=== PATIENT | female | born 1960 | race Caucasian/White ===

== ENCOUNTER → 2018-05-18 | Emergency (ER) | payer MEDICAID, MEDICARE ==
[~2018-05-18] VITALS: Ht 160 cm; Wt 102.6 kg
[2018-05-18 19:49] LABS: BASOPHILS # (AUTO) 0.1 X10'3 (0-0.2); EOSINOPHILS # (AUTO) 0.1 X10'3 (0-0.9); EOSINOPHILS % (AUTO) 1.1 % (0-6); HEMATOCRIT 42.5 % (35.0-45.0); HEMOGLOBIN 14.3 g/dl (12.0-16.0); LYMPHOCYTES # (AUTO) 1.3 X10'3 (1.1-4.8); LYMPHOCYTES % (AUTO) 14.3 % (21-51); MEAN CORPUSCULAR HEMOGLOBIN 29.9 PG (27.0-31.0); MEAN CORPUSCULAR HGB CONC 33.7 g/dL (33.0-36.5); MEAN CORPUSCULAR VOLUME 88.9 FL (78-98); MEAN PLATELET VOLUME 9.1 FL (7.4-10.4); MONOCYTES # (AUTO) 0.6 X10'3 (0-0.9); MONOCYTES % (AUTO) 6.2 % (2-12); NEUTROPHILS % (AUTO) 77.4 % (42-75); PLATELET COUNT 305 X10'3 (140-440); RED BLOOD COUNT 4.78 X10'6 (4.20-5.60); RED CELL DISTRIBUTION WIDTH 14.2 % (11.5-14.5)
[2018-05-18 20:12] LABS: ALANINE AMINOTRANSFERASE 21 U/L (12-78); ALBUMIN 3.6 G/DL (3.4-5.0); ALKALINE PHOSPHATASE 81 IU/L (46-116); ANION GAP 9 (8-16); ASPARTATE AMINO TRANSFERASE 13 U/L (10-37); BILIRUBIN,TOTAL 0.2 MG/DL (0.1-1.0); BLOOD UREA NITROGEN 22 MG/DL (7-18); BUN/CREATININE RATIO 20.2 (6.6-38.0); CALCIUM 9.2 MG/DL (8.5-10.1); CHLORIDE 106 MMOL/L (99-107); CREATININE 1.09 MG/DL (0.40-0.90); GLUCOSE 123 MG/DL (70-104); POTASSIUM 4.5 MMOL/L (3.5-5.1); SODIUM 142 MMOL/L (135-145); TOTAL CARBON DIOXIDE 26.8 MMOL/L (24-32); TOTAL PROTEIN 7.3 G/DL (6.4-8.2); eGFR 52 ML/MIN
[2018-05-18 20:18] LABS: PARTIAL THROMBOPLASTIN TIME 26 SECONDS (22-32); PROTHROMBIN TIME 10.1 SECONDS (9.0-12.0)
[2018-05-18 20:24] VITALS: BP 163/63
[2018-05-18 21:30] LABS: CLARITY,URINE CLEAR (Clear); COLOR,URINE YELLOW (Yellow); GLUCOSE, URINE NEGATIVE (Neg); KETONES,URINE 15 mg/dl (Neg); LEUKOCYTE ESTERASE ,URINE NEGATIVE (Neg); NITRITES, URINE NEGATIVE (Neg); OCCULT BLOOD,URINE NEGATIVE (Neg); PROTEIN,URINE NEGATIVE (Neg); UROBILINOGEN,URINE 0.2 E.U/dL (0.2-1.0)
[2018-05-18 21:41] LABS: UA COLLECTION TYPE CLN CATCH MIDSTREAM
== END | disposition home or self-care (01) ==
LOC: ER 19:11
DX: R55 Syncope and collapse (principal); R05 Cough; Z88.5 Allergy status to narcotic agent
CPT/HCPCS: 36415; 71045; 80053; 81003; 83880; 84484; 85025; 85610; 85730; 93005; 99284

== ENCOUNTER 2019-07-27 13:44 | Emergency (ER) | payer MEDICARE, MEDICAID ==
[~2019-07-27] VITALS: Ht 160 cm; Wt 103.7 kg
[2019-07-27 15:05] VITALS: BP 163/108
[2019-07-27] MEDS ORDERED: dexamethasone sod phosphate 10mg/ml inj IV STA (15:46)
[2019-07-27] MEDS ORDERED: ondansetron/PF 4mg/2ml inj IV ONE (15:50)
[2019-07-27] MEDS ORDERED: normal saline 1000ML IV soln IVB ONE (15:50)
[2019-07-27] MEDS ORDERED: ketorolac tromethamine 15mg/ml inj. IV ONE (15:50)
== END 2019-07-27 17:17 | disposition home or self-care (01) ==
LOC: ER 13:44
DX: R51 Headache (principal); E03.9 Hypothyroidism, unspecified; G89.29 Other chronic pain; F32.9 Major depressive disorder, single episode, unspecified; Z98.890 Other specified postprocedural states; Z88.5 Allergy status to narcotic agent
CPT/HCPCS: 96374; 96375; 99284; J1100; J1885; J2405; J7030

== ENCOUNTER 2019-09-25 13:14 | Emergency (ER) | payer MEDICARE, MEDICAID ==
[~2019-09-25] VITALS: Ht 160 cm; Wt 105.0 kg
[2019-09-25 13:45] LABS: BASOPHILS # (AUTO) 0.1 X10'3 (0-0.2); EOSINOPHILS # (AUTO) 0.2 X10'3 (0-0.9); HEMATOCRIT 40.7 % (35.0-45.0); HEMOGLOBIN 13.9 g/dl (12.0-16.0); LYMPHOCYTES # (AUTO) 1.4 X10'3 (1.1-4.8); LYMPHOCYTES % (AUTO) 23.9 % (21-51); MEAN CORPUSCULAR HEMOGLOBIN 31.5 PG (27.0-31.0); MEAN CORPUSCULAR HGB CONC 34.1 g/dL (33.0-36.5); MEAN CORPUSCULAR VOLUME 92.4 FL (78-98); MEAN PLATELET VOLUME 8.4 FL (7.4-10.4); MONOCYTES # (AUTO) 0.4 X10'3 (0-0.9); MONOCYTES % (AUTO) 7.2 % (2-12); NEUTROPHILS # (AUTO) 3.8 X10'3 (1.8-7.7); NEUTROPHILS % (AUTO) 63.9 % (42-75); PLATELET COUNT 281 X10'3 (140-440); RED BLOOD COUNT 4.41 X10'6 (4.20-5.60); RED CELL DISTRIBUTION WIDTH 13.1 % (11.5-14.5)
[2019-09-25 13:59] LABS: ALANINE AMINOTRANSFERASE 33 U/L (12-78); ALBUMIN 3.9 G/DL (3.4-5.0); ALBUMIN/GLOBULIN RATIO 0.9 (1.1-1.5); ALKALINE PHOSPHATASE 108 IU/L (46-116); ANION GAP 8 (8-16); ASPARTATE AMINO TRANSFERASE 16 U/L (10-37); BILIRUBIN,TOTAL 0.5 MG/DL (0.1-1.0); BLOOD UREA NITROGEN 16 MG/DL (7-18); CALCIUM 9.2 MG/DL (8.5-10.1); CHLORIDE 105 MMOL/L (99-107); CREATININE 1.23 MG/DL (0.40-0.90); GLUCOSE 104 MG/DL (70-104); POTASSIUM 4.1 MMOL/L (3.5-5.1); SODIUM 140 MMOL/L (135-145); TOTAL CARBON DIOXIDE 26.6 MMOL/L (24-32); TOTAL PROTEIN 8.2 G/DL (6.4-8.2); eGFR 45 ML/MIN
[2019-09-25 14:05] LABS: MAGNESIUM 2.1 MG/DL (1.5-2.4)
[2019-09-25 15:27] VITALS: BP 133/77
== END 2019-09-25 15:21 | disposition home or self-care (01) ==
LOC: ER 13:15
DX: R07.89 Other chest pain (principal); I10 Essential (primary) hypertension; E03.9 Hypothyroidism, unspecified; G89.29 Other chronic pain; F32.9 Major depressive disorder, single episode, unspecified; Z98.890 Other specified postprocedural states; Z88.5 Allergy status to narcotic agent
CPT/HCPCS: 36415; 71045; 80053; 83735; 83880; 84484; 85025; 93005; 99283; 99285

== ENCOUNTER 2019-12-24 10:24 | Outpatient (CLI) | payer MEDICARE, MEDICAID ==
[~2019-12-24] VITALS: Ht 160 cm; Wt 113.4 kg
[2019-12-24] MEDS ORDERED: albuterol 2.5 MG/3 ML nebule NEB ONE (11:05)
== END 2019-12-24 23:59 | disposition home or self-care (01) ==
LOC: RT 10:24
PROVIDERS: ATTEND Student in an Organized Health Care Education/Training Program
DX: R05 Cough (principal)
CPT/HCPCS: 94010

== ENCOUNTER 2020-01-31 12:10 | Emergency (ER) | payer MEDICARE, MEDICAID ==
[~2020-01-31] VITALS: Ht 160 cm; Wt 97.7 kg
[2020-01-31 12:59] LABS: BASOPHILS # (AUTO) 0.1 X10'3 (0-0.2); BASOPHILS % (AUTO) 0.7 % (0-1); EOSINOPHILS # (AUTO) 0.2 X10'3 (0-0.9); EOSINOPHILS % (AUTO) 1.5 % (0-6); HEMATOCRIT 42.7 % (35.0-45.0); HEMOGLOBIN 14.5 g/dl (12.0-16.0); LYMPHOCYTES # (AUTO) 1.7 X10'3 (1.1-4.8); MEAN CORPUSCULAR HEMOGLOBIN 31.4 PG (27.0-31.0); MEAN CORPUSCULAR VOLUME 92.4 FL (78-98); MEAN PLATELET VOLUME 8.6 FL (7.4-10.4); MONOCYTES # (AUTO) 1.1 X10'3 (0-0.9); MONOCYTES % (AUTO) 7.4 % (2-12); NEUTROPHILS % (AUTO) 79.4 % (42-75); PLATELET COUNT 423 X10'3 (140-440); RED BLOOD COUNT 4.63 X10'6 (4.20-5.60); RED CELL DISTRIBUTION WIDTH 12.7 % (11.5-14.5); WHITE BLOOD COUNT 15.1 X10'3 (4.5-11.0)
[2020-01-31 13:12] LABS: ALANINE AMINOTRANSFERASE 21 U/L (12-78); ALBUMIN/GLOBULIN RATIO 0.7 (1.1-1.5); ALKALINE PHOSPHATASE 109 IU/L (46-116); AMYLASE 38 U/L (25-115); ANION GAP 14 (8-16); ASPARTATE AMINO TRANSFERASE 12 U/L (10-37); BILIRUBIN,TOTAL 0.7 MG/DL (0.1-1.0); BLOOD UREA NITROGEN 12 MG/DL (7-18); BUN/CREATININE RATIO 9.2 (6.6-38.0); CALCIUM 10.1 MG/DL (8.5-10.1); CHLORIDE 102 MMOL/L (99-107); CREATININE 1.31 MG/DL (0.40-0.90); GLUCOSE 107 MG/DL (70-104); LIPASE 109 U/L (73-393); POTASSIUM 3.7 MMOL/L (3.5-5.1); SODIUM 139 MMOL/L (135-145); TOTAL CARBON DIOXIDE 23.2 MMOL/L (24-32); TOTAL PROTEIN 9.5 G/DL (6.4-8.2); eGFR 41 ML/MIN
[2020-01-31 13:16] LABS: CLARITY,URINE CLOUDY (Clear); COLOR,URINE YELLOW (Yellow); GLUCOSE, URINE NEGATIVE (Neg); KETONES,URINE >=80 mg/dl (Neg); LEUKOCYTE ESTERASE ,URINE TRACE (Neg); NITRITES, URINE NEGATIVE (Neg); OCCULT BLOOD,URINE TRACE-LYSED (Neg); PROTEIN,URINE 100 mg/dl (Neg)
[2020-01-31 13:23] LABS: UA COLLECTION TYPE CLN CATCH MIDSTREAM
[2020-01-31 13:26] LABS: BACTERIA,URINE 2+ /HPF (Neg); MUCUS STRANDS MODERATE /LPF (Neg); RBC,URINE 0-2 /HPF (0-2); RENAL CELLS, URINE FEW /HPF; SQUAMOUS EPITHELIAL CELL,UR MANY /LPF (FEW); TRANSITIONAL EPI CELLS,URINE FEW /HPF
[2020-01-31 13:27] LABS: AMORPHOUS URATES 1+
[2020-01-31] MEDS ORDERED: normal saline 1000ML IV soln IVB ONE (14:10)
[2020-01-31] MEDS ORDERED: AMOX-422 PO (14:50)
[2020-01-31 15:16] VITALS: BP 174/89
== END 2020-01-31 15:18 | disposition home or self-care (01) ==
LOC: ER 12:10
DX: K57.92 Diverticulitis of intestine, part unspecified, without perforation or abscess without bleeding (principal); I10 Essential (primary) hypertension; K21.9 Gastro-esophageal reflux disease without esophagitis; E03.9 Hypothyroidism, unspecified; G89.29 Other chronic pain; Z90.49 Acquired absence of other specified parts of digestive tract; Z88.8 Allergy status to other drugs, medicaments and biological substances; Z79.2 Long term (current) use of antibiotics
CPT/HCPCS: 36415; 74176; 80053; 81001; 82150; 83690; 85025; 96360; 99284; J7030

== ENCOUNTER 2021-08-15 11:27 | Emergency (ER) | payer MEDICARE, MEDICAID ==
[~2021-08-15] VITALS: Ht 162.6 cm; Wt 104.5 kg
[2021-08-15 13:01] VITALS: BP 186/88
[2021-08-15 13:52] LABS: CLARITY,URINE SLIGHTLY CLOUDY (Clear); COLOR,URINE YELLOW (Yellow); GLUCOSE, URINE NEGATIVE (Neg); KETONES,URINE NEGATIVE (Neg); LEUKOCYTE ESTERASE ,URINE NEGATIVE (Neg); NITRITES, URINE NEGATIVE (Neg); OCCULT BLOOD,URINE TRACE-INTACT (Neg); PH,URINE 5.5 (4.8-8.0); PROTEIN,URINE NEGATIVE (Neg); UROBILINOGEN,URINE 0.2 E.U/dL (0.2-1.0)
[2021-08-15 13:59] LABS: UA COLLECTION TYPE CLN CATCH MIDSTREAM
[2021-08-15 14:00] LABS: BACTERIA,URINE FEW /HPF (Neg); MUCUS STRANDS FEW /LPF (Neg); RBC,URINE 0-2 /HPF (0-2); SQUAMOUS EPITHELIAL CELL,UR FEW /LPF (FEW); WBC,URINE 20-30 /HPF (0-4)
[2021-08-15 14:01] LABS: WBC CLUMPS,URINE MANY /HPF (NEGATIVE)
[2021-08-15] MEDS ORDERED: PHEN-824 PO (14:27)
[2021-08-15] MEDS ORDERED: CEPH-585 PO (14:27)
== END 2021-08-15 14:30 | disposition home or self-care (01) ==
LOC: ER 11:27
DX: N39.0 Urinary tract infection, site not specified (principal); I10 Essential (primary) hypertension; K21.9 Gastro-esophageal reflux disease without esophagitis; E03.9 Hypothyroidism, unspecified; G89.29 Other chronic pain; Z90.49 Acquired absence of other specified parts of digestive tract; Z90.710 Acquired absence of both cervix and uterus; Z87.19 Personal history of other diseases of the digestive system; Z88.8 Allergy status to other drugs, medicaments and biological substances
CPT/HCPCS: 81001; 87088; 99283

== ENCOUNTER 2023-05-08 11:55 | Emergency (ER) | payer MEDICARE, MEDICAID ==
[~2023-05-08] VITALS: Ht 160 cm; Wt 99.0 kg
[~2023-05-08 11:55] MED LIST: PHEN-824 PO
[2023-05-08 12:26] VITALS: BP 125/77; PULSE 76; RESP 16; TEMP 98.8; O2SAT 100
[2023-05-08 13:19] LABS: BILIRUBIN,URINE NEGATIVE (Neg); CLARITY,URINE CLEAR (Clear); COLOR,URINE YELLOW (Yellow); GLUCOSE, URINE NEGATIVE (Neg); KETONES,URINE TRACE mg/dl (Neg); LEUKOCYTE ESTERASE ,URINE NEGATIVE (Neg); NITRITES, URINE NEGATIVE (Neg); OCCULT BLOOD,URINE NEGATIVE (Neg); PROTEIN,URINE NEGATIVE (Neg); URINE HCG NEGATIVE (NEG); UROBILINOGEN,URINE 0.2 E.U/dL (0.2-1.0)
[2023-05-08 13:27] LABS: UA COLLECTION TYPE CLN CATCH MIDSTREAM
[2023-05-08 13:31] LABS: BASOPHILS # (AUTO) 0.1 X10'3 (0-0.2); BASOPHILS % (AUTO) 0.7 % (0-1); EOSINOPHILS # (AUTO) 0.2 X10'3 (0-0.9); EOSINOPHILS % (AUTO) 2.3 % (0-6); HEMATOCRIT 40.9 % (35.0-45.0); HEMOGLOBIN 13.8 g/dl (12.0-16.0); LYMPHOCYTES # (AUTO) 1.2 X10'3 (1.1-4.8); LYMPHOCYTES % (AUTO) 15.4 % (21-51); MEAN CORPUSCULAR HEMOGLOBIN 31.2 PG (27.0-31.0); MEAN CORPUSCULAR HGB CONC 33.7 g/dL (33.0-36.5); MEAN CORPUSCULAR VOLUME 92.4 FL (78-98); MEAN PLATELET VOLUME 8.9 FL (7.4-10.4); MONOCYTES # (AUTO) 0.7 X10'3 (0-0.9); MONOCYTES % (AUTO) 9.3 % (2-12); NEUTROPHILS # (AUTO) 5.5 X10'3 (1.8-7.7); NEUTROPHILS % (AUTO) 72.3 % (42-75); PLATELET COUNT 287 X10'3 (140-440); RED BLOOD COUNT 4.43 X10'6 (4.20-5.60); RED CELL DISTRIBUTION WIDTH 13.1 % (11.5-14.5); WHITE BLOOD COUNT 7.6 X10'3 (4.5-11.0)
[2023-05-08 13:55] LABS: ALANINE AMINOTRANSFERASE 17 U/L (12-78); ALBUMIN 4.1 G/DL (3.4-5.0); ALBUMIN/GLOBULIN RATIO 0.9 (1.1-1.5); ALKALINE PHOSPHATASE 93 IU/L (46-116); ANION GAP 8 (8-16); ASPARTATE AMINO TRANSFERASE 16 U/L (10-37); BILIRUBIN,TOTAL 0.5 MG/DL (0.1-1.0); BLOOD UREA NITROGEN 17 MG/DL (7-18); BUN/CREATININE RATIO 14.3 (10.0-20.0); CHLORIDE 105 MMOL/L (99-107); CREATININE 1.19 MG/DL (0.40-0.90); GLUCOSE 107 MG/DL (70-104); LIPASE 48 U/L (16-77); POTASSIUM 4.1 MMOL/L (3.5-5.1); SODIUM 139 MMOL/L (135-145); TOTAL CARBON DIOXIDE 26.4 MMOL/L (24-32); TOTAL PROTEIN 8.7 G/DL (6.4-8.2); eCRCL 40 ML/MIN; eGFR 46 ML/MIN
[2023-05-08 15:48] LABS: APTT 33 SECONDS (22-32); PROTHROMBIN TIME 10.6 SECONDS (9.0-12.0)
[2023-05-08] MEDS ORDERED: DICY10CA88 PO (17:43)
[2023-05-08] MEDS ORDERED: AMOX-580 PO (17:43)
[2023-05-08] MEDS ORDERED: ketorolac trometh inj. 60 MG/2 ML VIAL IM ONE (17:50)
== END 2023-05-08 17:55 | disposition home or self-care (01) ==
LOC: ER 11:55
DX: K57.92 Diverticulitis of intestine, part unspecified, without perforation or abscess without bleeding (principal)
CPT/HCPCS: 36415; 74176; 80053; 81003; 81025; 83605; 83690; 84145; 85025; 85610; 85730; 87040; 99284

== ENCOUNTER 2023-05-13 11:16 | Emergency (ER) | payer MEDICARE, MEDICAID ==
[~2023-05-13] VITALS: Ht 160 cm; Wt 98.3 kg
[~2023-05-13 11:16] MED LIST changes: +AMOX-580 PO; +DICY10CA88 PO
[2023-05-13 12:24] LABS: BASOPHILS # (AUTO) 0.1 X10'3 (0-0.2); BASOPHILS % (AUTO) 1.1 % (0-1); EOSINOPHILS # (AUTO) 0.3 X10'3 (0-0.9); EOSINOPHILS % (AUTO) 3.3 % (0-6); HEMATOCRIT 41.3 % (35.0-45.0); HEMOGLOBIN 13.9 g/dl (12.0-16.0); LYMPHOCYTES # (AUTO) 1.3 X10'3 (1.1-4.8); LYMPHOCYTES % (AUTO) 15.4 % (21-51); MEAN CORPUSCULAR HEMOGLOBIN 30.8 PG (27.0-31.0); MEAN CORPUSCULAR HGB CONC 33.8 g/dL (33.0-36.5); MEAN CORPUSCULAR VOLUME 91.3 FL (78-98); MEAN PLATELET VOLUME 8.6 FL (7.4-10.4); MONOCYTES # (AUTO) 0.7 X10'3 (0-0.9); MONOCYTES % (AUTO) 8.7 % (2-12); NEUTROPHILS % (AUTO) 71.5 % (42-75); PLATELET COUNT 313 X10'3 (140-440); RED BLOOD COUNT 4.52 X10'6 (4.20-5.60); RED CELL DISTRIBUTION WIDTH 13.1 % (11.5-14.5); WHITE BLOOD COUNT 8.4 X10'3 (4.5-11.0)
[2023-05-13 12:34] LABS: URINE HCG NEGATIVE (NEG)
[2023-05-13 12:36] LABS: BILIRUBIN,URINE NEGATIVE (Neg); CLARITY,URINE CLEAR (Clear); COLOR,URINE YELLOW (Yellow); GLUCOSE, URINE NEGATIVE (Neg); KETONES,URINE NEGATIVE (Neg); LEUKOCYTE ESTERASE ,URINE NEGATIVE (Neg); NITRITES, URINE NEGATIVE (Neg); OCCULT BLOOD,URINE NEGATIVE (Neg); PH,URINE 5.5 (4.8-8.0); PROTEIN,URINE NEGATIVE (Neg); UROBILINOGEN,URINE 0.2 E.U/dL (0.2-1.0)
[2023-05-13 12:45] LABS: ALANINE AMINOTRANSFERASE 17 U/L (12-78); ALBUMIN 3.8 G/DL (3.4-5.0); ALBUMIN/GLOBULIN RATIO 0.8 (1.1-1.5); ALKALINE PHOSPHATASE 84 IU/L (46-116); ANION GAP 11 (8-16); ASPARTATE AMINO TRANSFERASE 13 U/L (10-37); BILIRUBIN,TOTAL 0.4 MG/DL (0.1-1.0); BLOOD UREA NITROGEN 17 MG/DL (7-18); BUN/CREATININE RATIO 14.8 (10.0-20.0); CALCIUM 9.4 MG/DL (8.5-10.1); CHLORIDE 104 MMOL/L (99-107); CREATININE 1.15 MG/DL (0.40-0.90); GLUCOSE 99 MG/DL (70-104); LIPASE 43 U/L (16-77); POTASSIUM 4.1 MMOL/L (3.5-5.1); SODIUM 142 MMOL/L (135-145); TOTAL CARBON DIOXIDE 27.1 MMOL/L (24-32); TOTAL PROTEIN 8.7 G/DL (6.4-8.2); eCRCL 41 ML/MIN; eGFR 48 ML/MIN
[2023-05-13 12:47] LABS: UA COLLECTION TYPE NON-SPECIFIED
[2023-05-13] MEDS: diphenhydrAMINE 50 mg/ml inj IV ONE (15:30)
[2023-05-13] MEDS: ondansetron/PF 4mg/2ml inj IV ONE (15:40)
[2023-05-13] MEDS: HYDROmorphone inj. 0.5 MG/0.5 ML DISP.SYRIN IV ONE (15:40)
[2023-05-13] MEDS ORDERED: iohexol 300mg/ml 100ml inj. ONE (15:53)
[2023-05-13 17:30] VITALS: PULSE 70
[2023-05-13] MEDS ORDERED: METR-159 PO (17:47)
[2023-05-13] MEDS ORDERED: CIPR750T14 PO (17:47)
[2023-05-13] MEDS ORDERED: TRAM50TA2 PO (17:49)
[2023-05-13 17:58] VITALS: BP 159/76; RESP 14; TEMP 98.6; O2SAT 98
== END 2023-05-13 18:00 | disposition home or self-care (01) ==
LOC: ER 11:17
DX: K57.92 Diverticulitis of intestine, part unspecified, without perforation or abscess without bleeding (principal); I10 Essential (primary) hypertension; K21.9 Gastro-esophageal reflux disease without esophagitis; E03.9 Hypothyroidism, unspecified; Z88.5 Allergy status to narcotic agent; Z79.2 Long term (current) use of antibiotics; Z79.899 Other long term (current) drug therapy; Z90.49 Acquired absence of other specified parts of digestive tract; Z90.710 Acquired absence of both cervix and uterus
CPT/HCPCS: 36415; 74177; 80053; 81003; 81025; 83690; 85025; 99285; J3490; Q9967

== ENCOUNTER 2024-01-30 13:25 | Emergency (ER) | payer MEDICARE, MEDICAID ==
[~2024-01-30] VITALS: Ht 160 cm; Wt 95.5 kg
[~2024-01-30 13:25] MED LIST changes: -AMOX-580 PO; +CIPR250T4 PO; +CLIN300C3 PO; -DICY10CA88 PO; +SULF1TAB45 PO
[2024-01-30 13:44] VITALS: BP 122/89; PULSE 68; RESP 18; TEMP 97.8; O2SAT 99
== END 2024-01-30 16:39 | disposition left against medical advice (07) ==
LOC: ER 13:26
DX: L02.511 Cutaneous abscess of right hand (principal); Z53.21 Procedure and treatment not carried out due to patient leaving prior to being seen by health care provider; Z88.5 Allergy status to narcotic agent

== ENCOUNTER 2024-07-07 10:05 | Emergency (ER) | payer MEDICARE, MEDICAID ==
[~2024-07-07] VITALS: Ht 160 cm; Wt 101.7 kg
[~2024-07-07 10:05] MED LIST changes: -CLIN300C3 PO; -SULF1TAB45 PO
--- NOTE | 2024-07-07 10:58 | Physician Documentation ---
History of Present Illness ~ Chief Complaint: Ear Pain Stated Complaint: L EAR PAIN/COUGH Time Seen by MD: 10:50 Primary Medical Doctor: LUIS Jack 63-year-old female presents to the ED with a complaint of left ear pain and jaw pain for the last 2-3 days. She states she that she meets sour dough bread a few days ago took a bite of the sour dough and developed a cracking sound in her jaw. Has ear and jaw pain. Denies any fever nausea vomiting diarrhea. Denies any history of TMJ. Patient also complains of a right elbow injury from a fall last week. Day of Onset: July 07, 2024 Medication Reconciliation Allergies: Coded Allergies: cefpodoxime (Verified Allergy, Unknown, 07/07/24) codeine (Verified Allergy, Unknown, 07/07/24) hydrocodone (Verified Allergy, Unknown, 07/07/24) Scheduled Ciprofloxacin HCl (Ciprofloxacin HCl), 1 TAB PO Q12H Phenazopyridine HCl (Pyridium), 1 TAB PO Q8H Past Medical History Past Medical History: Hypertension, Diverticulitis, GERD, Hemorrhoids, Hypothyroidism, Chronic Pain, Depression Past Surgical History: cholecystectomy, hysterectomy, other Patient History: FHx: atrial fibrillation MOTHER CHILD FHx: myocardial infarction FATHER, , Age: 40's - 50, Cause: Myocardial infarction (48) Drug Use: none Lives with: Family Lives In: Home Occupation: employed Review of Systems All Other Systems at this time: Reviewed and Negative ROS As stated above in the HPI, otherwise all systems are reviewed and negative. Physical Exam Vital Signs: Temperature: 98.0, Source: Temporal, Heart Rate: 91, Respiratory Rate: 18, BP: 148/96, Pulse Oximetry: 98, Weight: 101.650 Physical Exam General: Alert, no apparent distress. HEENT: PERRL, EOMI, no injection, moist mucous membranes. No evidence of erythema in bilateral external auditory canals tympanic membranes were translucent no evidence of effusions patient's was mildly tender to the left mandible Neck: Full range of motion. Respiratory: Lungs clear, no respiratory distress. Chest: No accessory muscle use. Psychiatric: Normal mood and affect. Skin: Normal color, warm and dry. No edema, no ecchymosis. Progress Results/Orders Results/Orders Orders - HERNANDO KWNA NP Elbow, Complete (3vw Min) (07/07/24 10:53) Completed Orders - HERNANDO KWAN NP Elbow, Complete (3vw Min) (07/07/24 10:53) Ketorolac Trometh 15mg/Ml Vial (Toradol (07/07/24 11:25) Medications Received in ER Medications (Trade) Dose Ordered Sig/Luis Route PRN Reason Start Time Stop Time Status Last Admin Dose Admin (Toradol injection) 15 mg ONCE ONCE IM 07/07/24 11:25 07/07/24 11:26 DC 07/07/24 11:34 15 MG Vital Signs 07/07/24 07/07/24 10:17 11:36 Temp 98.0 98.0 Pulse 91 91 Resp 18 16 B/P (MAP) 148/96 148/96 Pulse Ox 98 98 Medical Decision Making Findings Currently suspecting mild case of TMJ. We will treat her with Toradol and advised her follow up in the outpatient setting for further evaluation and potential physical therapy. Departure Disposition: HOME / SELF CARE / HOMELESS Impression: Primary Impression: TMJ (sprain of temporomandibular joint) Additional Impression: TMJ (temporomandibular joint disorder) Condition: Stable Discharge Instructions: Jaw Range of Motion Exercises Additional Instructions: Recommend following up with the your outpatient provider for further evaluation of your jaw pain. Currently suspecting TMJ. You were provided Toradol which should help with some of your symptoms. Also you may read the jaw [id number] exercises which also may help with the your pain Per my interpretation I do not see any acute fractures on her right elbow x-ray. Referrals: NO PRIMARY CARE PROVIDER (PCP) Education Educated: Patient Educated regarding: diagnosis Signature Scribe Signature: vc Attestation: The note accurately reflects work and decisions made by me.Hernando Kwan - MARCO A 07/07/24 10:57 HERNANDO KWAN NP July 07, 2024 10:58
[2024-07-07] MEDS: ketorolac trometh 15mg/ml vial 15 MG/ML ML IM ONE (11:34)
[2024-07-07 11:36] VITALS: BP 148/96; PULSE 91; RESP 16; TEMP 98; O2SAT 98
--- NOTE | 2024-07-07 12:01 | RADIOLOGY REPORT ---
Procedure: DI ELBOW, COMPLETE (3VW MIN) 07/07/2024 11:01 AM TECHNIQUE: DI ELBOW, COMPLETE (3VW MIN) Indication: fall Comparison: None FINDINGS: Bones: No acute fracture or dislocation. Joint spaces are maintained. No joint effusion seen. Soft tissues: Unremarkable. No radiopaque foreign body. IMPRESSION: 1. No acute osseous abnormality.
== END 2024-07-07 11:37 | disposition home or self-care (01) ==
LOC: ER 10:05
DX: S03.42XA Sprain of jaw, left side, initial encounter (principal); S59.901A Unspecified injury of right elbow, initial encounter; E03.9 Hypothyroidism, unspecified; I10 Essential (primary) hypertension; Z88.5 Allergy status to narcotic agent; Z90.49 Acquired absence of other specified parts of digestive tract; Z90.710 Acquired absence of both cervix and uterus; F32.A Depression, unspecified; W19.XXXA Unspecified fall, initial encounter; Y93.89 Activity, other specified; Y92.89 Other specified places as the place of occurrence of the external cause; Y99.8 Other external cause status
CPT/HCPCS: 73080; 96372; 99283; J1885

== ENCOUNTER 2024-08-01 14:00 | Emergency (ER) | payer MEDICARE, MEDICAID ==
[~2024-08-01] VITALS: Ht 160 cm; Wt 101.1 kg
[2024-08-01 14:02] VITALS: BP 151/92; PULSE 80; O2SAT 97
--- NOTE | 2024-08-01 15:24 | Physician Documentation ---
History of Present Illness ~ Chief Complaint: Wound Stated Complaint: "FLUID LEAKING OUT OF ELBOW" Time Seen by MD: 14:13 Primary Medical Doctor: [facility] Patient is seen today with complaints of chronic wound to her left elbow. Patient states in 2013 she had an ORIF of her left elbow and has been doing fine up until she fell back onto her left elbow and hit forcibly on the ground about 5-6 months ago. Patient has had two sets of x-rays and has had an appointment with Dr. Murillo orthopedist who stated that the patient was recommended to have removal of the orthopedic hardware. Patient is here today looking for a 2nd opinion and also complaining of pain of the left elbow. Patient states she did have redness and swelling of the olecranon process of the left elbow but then it opened and started draining weeks ago. She denies any current fevers or chills and has no other concern or complaint at this time. Tetanus within 5 years?: Yes Medication Reconciliation Allergies: Coded Allergies: cefpodoxime (Verified Allergy, Unknown, 07/07/24) codeine (Verified Allergy, Unknown, 07/07/24) hydrocodone (Verified Allergy, Unknown, 07/07/24) Scheduled Ciprofloxacin HCl (Ciprofloxacin HCl), 1 TAB PO Q12H Phenazopyridine HCl (Pyridium), 1 TAB PO Q8H Past Medical History Past Medical History: Hypertension, Diverticulitis, GERD, Hemorrhoids, Hypothyroidism, Chronic Pain, Depression Past Surgical History: cholecystectomy, hysterectomy, other Patient History: FHx: atrial fibrillation MOTHER CHILD FHx: myocardial infarction FATHER, , Age: 40's - 50, Cause: Myocardial infarction (48) Drug Use: none Lives with: Family Lives In: Home Occupation: employed Review of Systems Constitutional: Denies: chills, fever, weakness Eyes: Denies: pain, blurred vision ENT: Denies: ear pain, nose pain, throat pain, mouth pain Respiratory: Denies: cough, shortness of breath Cardiovascular: Denies: chest pain, palpitations Gastrointestinal: Denies: abdominal pain, nausea, vomiting Genitourinary: Denies: burning, dysuria Female Genitalia: Denies: vaginal discharge, pelvic pain Neurological: Denies: headache, dizziness Musculoskeletal: Denies: pain, swelling Integumentary: Denies: rash, lesions Allergic/Immunologic: Denies: hives, itching Hematologic/Lymphatic: Denies: no symptoms reported Psychiatric: Denies: depression, anxiety Physical Exam Vital Signs: Temperature: 97.2, Source: Temporal, Heart Rate: 80, Respiratory Rate: 16, BP: 151/92, Pulse Oximetry: 97, Weight: 101.100 Oxygen Flow Rate: 0 Physical Exam General: Awake and Alert, no acute distress. HEENT: Conjunctiva pink, Sclera clear, Mucus Membranes moist. Neck: Supple without masses and tenderness. Resp: Unlabored. Lungs clear to auscultation bilaterally. Heart: Regular Rate and rhythm, normal S1 and S2 without murmur, rub or gallop. Musculoskeletal: Patient on exam does have a very small punctate mikel over the olecranon process of the left side with very small amount of serous drainage. I do not appreciate any purulent drainage or serosanguineous drainage. The area is minimally tender to palpation without any fluctuant mass or sign of abscess at this time. Patient does have postsurgical changes of the left arm consistent with ORIF. Patient does have decreased range of motion of the left elbow. Patient is neurovascularly intact distally. Motor function intact distally. Extremities: No cyanosis,clubbing or edema. Skin: Warm and Dry. Progress Results/Orders Results/Orders Completed Orders - GENET MORE Ketorolac Trometh 30mg/Ml Vial (Toradol (08/01/24 15:18) Vital Signs 08/01/24 14:02 Temp 97.2 Pulse 80 Resp 16 B/P (MAP) 151/92 Pulse Ox 97 O2 Flow Rate 0 Medical Decision Making Findings Patient is seen today with complaints of chronic wound to her left elbow. Patient states in 2013 she had an ORIF of her left elbow and has been doing fine up until she fell back onto her left elbow and hit forcibly on the ground about 5-6 months ago. Patient has had two sets of x-rays and has had an appointment with Dr. Murillo orthopedist who stated that the patient was recommended to have removal of the orthopedic hardware. Patient is here today looking for a 2nd opinion and also complaining of pain of the left elbow. Patient states she did have redness and swelling of the olecranon process of the left elbow but then it opened and started draining weeks ago. She denies any current fevers or chills and has no other concern or complaint at this time. Patient declined repeat x-ray at this time stating she has previously had two x- rays. Patient was given Toradol 30 mg IM in the ED today for pain. Patient wi ll follow up with primary care for referral to orthopedist for 2nd opinion and will return to ED with any worsening, concerning or changing symptoms. I did recommend to patient that she should do this promptly has I do agree with Dr. Murillo that the hardware are likely needs to be removed for proper treatment. Departure Disposition: HOME / SELF CARE / HOMELESS Impression: Primary Impression: Wound Additional Impression: Painful orthopaedic hardware Condition: Stable Discharge Instructions: Orthopedic Hardware Removal Additional Instructions: Patient declined repeat x-ray at this time stating she has previously had two x- rays. Patient was given Toradol 30 mg IM in the ED today for pain. Patient will follow up with primary care for referral to orthopedist for 2nd opinion and will return to ED with any worsening, concerning or changing symptoms. I did recommend to patient that she should do this promptly has I do agree with Dr. Murillo that the hardware are likely needs to be removed for proper treatment. Referrals: NO PRIMARY CARE PROVIDER (PCP) Signature Scribe Signature: No scribe Attestation: No scribe GENET MORE PAC Aug 01, 2024 15:24
[2024-08-01 16:19] VITALS: RESP 16
[2024-08-01] MEDS: ketorolac trometh 30MG/ML vial 30 MG/ML VIAL IM STA (16:19)
[2024-08-01 16:23] VITALS: TEMP 97.2
== END 2024-08-01 16:24 | disposition home or self-care (01) ==
LOC: ER 14:00
DX: S50.902A Unspecified superficial injury of left elbow, initial encounter (principal); E03.9 Hypothyroidism, unspecified; I10 Essential (primary) hypertension; F32.A Depression, unspecified; K21.9 Gastro-esophageal reflux disease without esophagitis; Z88.5 Allergy status to narcotic agent; Z90.49 Acquired absence of other specified parts of digestive tract; Z90.710 Acquired absence of both cervix and uterus; X58.XXXA Exposure to other specified factors, initial encounter; Y93.89 Activity, other specified; Y92.89 Other specified places as the place of occurrence of the external cause; Y99.8 Other external cause status
CPT/HCPCS: 96372; 99283; J1885

== ENCOUNTER 2025-02-24 10:05 | Outpatient (CLI) | payer MEDICARE, MEDICAID ==
--- NOTE | 2025-02-24 14:21 | RADIOLOGY REPORT ---
CLINICAL INFORMATION: 64 years old, Female; PAIN IN RIGHT HIP. TECHNIQUE: Multisequence multiplanar MRI images of the right hip were obtained without contrast. COMPARISON: CT abdomen and pelvis dated 05/13/2023. FINDINGS: BONES: No acute fracture or osteonecrosis. JOINT: Moderate joint space narrowing in both hips. Fraying and small tear at the anterior superior labrum. No significant joint effusion. Lack of Smaller [id number] axial images of the right hip limits evaluation. BURSAE: Mild edema and trace fluid in the right hip trochanteric bursa. TENDONS: Mild tendinosis of the distal gluteus medius and minimus tendons. Origins of the rectus femoris tendon and hamstring tendons are intact. Distal insertion of the iliopsoas tendon is intact. MUSCLES: Mild fatty atrophy of the gluteus minimus muscles bilaterally. OTHER: No other significant findings. IMPRESSION: 1. Fraying and small tear at the anterior superior labrum of the right hip. 2. No acute osseous abnormality. 3. Moderate joint space narrowing in both hips. 4. Mild tendinosis of the distal gluteus medius and minimus tendons with mild right peritrochanteric edema and trace fluid.
== END 2025-02-24 23:59 | disposition home or self-care (01) ==
LOC: MRI02 10:05
PROVIDERS: ATTEND Nurse Practitioner Family
DX: S73.191A Other sprain of right hip, initial encounter (principal); M25.551 Pain in right hip; Z68.41 Body mass index [BMI] 40.0-44.9, adult; Z71.3 Dietary counseling and surveillance; M16.0 Bilateral primary osteoarthritis of hip; R60.0 Localized edema; X58.XXXA Exposure to other specified factors, initial encounter; Y93.89 Activity, other specified; Y92.89 Other specified places as the place of occurrence of the external cause; Y99.8 Other external cause status
CPT/HCPCS: 73721